=== PATIENT | male | born 1995 ===

== ENCOUNTER 2017-10-08 14:11 | Emergency (ER) | payer OTHER ==
[~2017-10-08] VITALS: Ht 180.3 cm; Wt 70.8 kg
[~2017-10-08 14:11] MED LIST: FOCALIN XR20 MG; ORPH100T PO
== END 2017-10-08 22:33 | disposition home or self-care (01) ==
LOC: ER 14:11
DX: K62.5 Hemorrhage of anus and rectum (principal); R10.32 Left lower quadrant pain

== ENCOUNTER 2022-07-21 17:52 | Emergency (ER) | payer OTHER ==
[~2022-07-21] VITALS: Ht 182.9 cm; Wt 76.2 kg
[~2022-07-21 17:52] MED LIST changes: +AMOX-CLAV 875-1 EACH PO; +PERCOCET 5-3251 EACH PO
[2022-07-21] MEDS ORDERED: PEPCID AC20 MG PO (21:33)
[2022-07-21] MEDS ORDERED: ZOFRAN8 MG PO (21:33)
== END 2022-07-21 21:42 | disposition home or self-care (01) ==
LOC: ER 17:52
DX: R11.2 Nausea with vomiting, unspecified (principal)